=== PATIENT | male | born 1995 | race Caucasian/White ===

== ENCOUNTER 2023-06-17 12:04 | Emergency (ER) | payer SELFPAY ==
[2023-06-17 12:06] VITALS: BP 101/54; PULSE 51; RESP 18; TEMP 36.8; O2SAT 99; BMI 21.4
--- NOTE | 2023-06-17 12:23 | CT_ITS ---
FINAL REPORT CLINICAL HISTORY: high impact injury to R yarsani FINDINGS: Axial images of the head were obtained without contrast. Coronal reformatted images were also obtained.This study was performed with techniques to keep radiation doses as low as reasonably achievable (ALARA). Individualized dose reduction techniques using automated exposure control or adjustment of mA and/or kV according to the patient's size were employed. There is no evidence of intracranial hemorrhage or mass. The ventricular size is within normal limits. There is no evidence of shift of the midline structures. No abnormal extra axial fluid collection is identified. No skull abnormality is seen on the bone window images. There is a mucous retention cyst or polyp in the right maxillary sinus. IMPRESSION: No acute intracranial abnormality. Reviewed, Interpreted and Dictated by Peng Nieto III, MD Transcribed by Oliver Hooker Authenticated and [facility]
--- NOTE | 2023-06-17 12:36 | PC.NURSE ---
PT TO CT
--- NOTE | 2023-06-17 13:10 | PC.NURSE ---
pt moved from room 14 to room 6 for Er Md to be able to repair pt eye
--- NOTE | 2023-06-17 13:12 | [facility].EDGENADL ---
Discharge Plan Disposition Patient Disposition: Home, Self-Care Condition: Good Referrals Follow up/Referrals: Connor Peters [Primary Care Provider] - See instructions Activity Restrictions/Add. Instructions Additional Instructions/Restrictions: You were evaluated in the emergency department today. Please keep your wound clean and dry. Do not submerge under any water. Your sutures will dissolve on their own. Follow-up with your primary care provider for reassessment. Take Tylenol and ibuprofen at home as needed for pain. Return to the emergency department for new or worsening symptoms. Clinical Impressions Clinical Impression: Forehead laceration, Closed head injury Stand Alone Forms Stand Alone Forms: Work/School Release Instructions Patient Instructions: DI for Laceration Repair, DI for Closed Head Injury Discharge ED Provider: Maira Robin General Adult HPI General Chief complaint: Head Injury Stated complaint: ao hammer drill to head Time Seen by Provider: 06/17/23 12:13 Mode of Arrival: Ambulatory Source of Information: Patient Limitations: No Limitations Description of Symptoms (Recalled from ER Triage Doc. by RN): c/o right laceration after hitting his self accidently with a hammer when he was pulling the hammer back. states he might of LOC for a few seconds, he was told that he had to be caught from falling when it happened by a friend. History of Present Illness HPI narrative: This patient is a 27-year-old male who denies significant past medical history presenting to the emergency department for evaluation with concern for a laceration to his right catholic. Patient states that he was using an electric hammer when he accidentally hit himself in the side of the head. He believes that he lost consciousness briefly. His friend had to catch him from falling. He denies any vision changes, double vision, blurry vision, numbness, tingling, or other concerns at this time. He did not get any other injuries elsewhere. He notes that his last tetanus shot was 2 years ago. Related Data Allergies Allergy/AdvReac Type Severity Reaction Status Date / Time amoxicillin [From Augmentin] Allergy Verified 06/17/23 12:26 cefixime [From Suprax] Allergy Verified 06/17/23 12:26 clavulanic acid Allergy Verified 06/17/23 12:26 [From Augmentin] loratadine Allergy Verified 06/17/23 12:26 [facility] Disclaimer: The information contained in this section may have been updated after the patient was seen, as this information can be updated by other users. Social History Smoking Status: Unknown if ever smoked alcohol intake: never current occupational status: employed Travel in the last 8 weeks: None ROS Obtained: Yes All systems reviewed & no additional complaints except as documented Physical Exam General General appearance: alert and in no apparent distress Head Head exam: other (1 cm laceration R catholic/eyebrow. Hemostatic. No step-offs or hematoma.) Expanded Head Exam Head image: 1. laceration 2. 3. Eye Eye exam: Present normal appearance, PERRL and EOMI; Absent conjunctival redness, conjunctival injection, periorbital swelling or periorbital tenderness ENT ENT exam: Present normal exam, normal oropharynx, mucous membranes moist and normal external ear exam Neck Neck exam: Present normal inspection, full ROM and trachea midline; Absent tenderness Chest Chest inspection: Present normal inspection and symmetric chest wall rise; Absent tenderness Respiratory Respiratory exam: Present normal lung sounds bilaterally; Absent respiratory distress, wheezes, stridor or accessory muscle use Cardiovascular Cardiovascular exam: Present regular rate and normal rhythm Abdominal Exam Abdominal exam: Present soft; Absent distention, tenderness or guarding Extremities Exam Extremities exam: Present normal inspection, full ROM and normal capillary refill;
--- NOTE | 2023-06-17 14:16 | PC.NURSE ---
radiology reading scans at this time
[2023-06-17 15:13] VITALS: BP 116/69; PULSE 69; RESP 18; TEMP 36.6; O2SAT 100
== END 2023-06-17 15:13 | disposition home or self-care (01) ==
PROVIDERS: Emergency Provider Emergency Medicine; PCP Family Medicine
DX: S09.8XXA Other specified injuries of head, initial encounter (principal); S01.81XA Laceration without foreign body of other part of head, initial encounter; W29.8XXA Contact with other powered hand tools and household machinery, initial encounter
CPT/HCPCS: 12011; 70450; 99284